=== PATIENT | female | born 1945 | race Caucasian/White ===

== ENCOUNTER 2019-05-02 10:35 | Emergency (ER) | payer MEDICARE ==
[~2019-05-02] VITALS: Ht 157.5 cm; Wt 72.6 kg
[~2019-05-02 10:35] MED LIST: GLYB2.5T4 PO; IC-5 PO; LOSA1TAB39 PO; METF500T PO; PAPA1TAB11 PO; PRAV20TA4 PO; [UNRECOGNIZED DRUG - CODE] PO; [UNRECOGNIZED DRUG - OTHER] PO
--- NOTE | 2019-05-02 11:10 | NUR ---
Pt attempted to give urine sample, but was unable to.
[2019-05-02 13:31] LABS: CLARITY,URINE SLIGHTLY CLOUDY (Clear); COLOR,URINE YELLOW (Yellow); GLUCOSE, URINE NEGATIVE (Neg); KETONES,URINE TRACE mg/dl (Neg); LEUKOCYTE ESTERASE ,URINE NEGATIVE (Neg); NITRITES, URINE NEGATIVE (Neg); OCCULT BLOOD,URINE SMALL (Neg); PROTEIN,URINE TRACE mg/dl (Neg); UROBILINOGEN,URINE 0.2 E.U/dL (0.2-1.0)
[2019-05-02 13:32] LABS: BASOPHILS % (AUTO) 0.1 % (0-1); EOSINOPHILS # (AUTO) 0.1 X10'3 (0-0.9); EOSINOPHILS % (AUTO) 0.7 % (0-6); HEMATOCRIT 37.8 % (35.0-45.0); HEMOGLOBIN 12.5 g/dl (12.0-16.0); LYMPHOCYTES # (AUTO) 2.1 X10'3 (1.1-4.8); MEAN CORPUSCULAR HEMOGLOBIN 27.5 PG (27.0-31.0); MEAN CORPUSCULAR HGB CONC 33.1 g/dL (33.0-36.5); MEAN CORPUSCULAR VOLUME 83.2 FL (78-98); MEAN PLATELET VOLUME 7.1 FL (7.4-10.4); MONOCYTES # (AUTO) 0.6 X10'3 (0-0.9); MONOCYTES % (AUTO) 5.5 % (2-12); NEUTROPHILS # (AUTO) 7.7 X10'3 (1.8-7.7); NEUTROPHILS % (AUTO) 73.7 % (42-75); PLATELET COUNT 487 X10'3 (140-440); RED BLOOD COUNT 4.54 X10'6 (4.20-5.60); RED CELL DISTRIBUTION WIDTH 14.9 % (11.5-14.5); WHITE BLOOD COUNT 10.5 X10'3 (4.5-11.0)
[2019-05-02 13:34] LABS: UA COLLECTION TYPE VOIDED
[2019-05-02 13:42] LABS: BACTERIA,URINE FEW /HPF (Neg); MUCUS STRANDS FEW /LPF (Neg); RBC,URINE 0-2 /HPF (0-2); SQUAMOUS EPITHELIAL CELL,UR MODERATE /LPF (FEW); WBC,URINE 0-4 /HPF (0-4)
[2019-05-02 13:56] LABS: ALANINE AMINOTRANSFERASE 26 U/L (12-78); ALBUMIN 3.7 G/DL (3.4-5.0); ALBUMIN/GLOBULIN RATIO 0.8 (1.1-1.5); ALKALINE PHOSPHATASE 111 IU/L (46-116); ANION GAP 16 (8-16); ASPARTATE AMINO TRANSFERASE 19 U/L (10-37); BILIRUBIN,TOTAL 0.2 MG/DL (0.1-1.0); BLOOD UREA NITROGEN 19 MG/DL (7-18); BUN/CREATININE RATIO 10.7 (6.6-38.0); CALCIUM 10.2 MG/DL (8.5-10.1); CHLORIDE 92 MMOL/L (99-107); CREATININE 1.77 MG/DL (0.40-0.90); GLUCOSE 143 MG/DL (70-104); SODIUM 126 MMOL/L (135-145); TOTAL CARBON DIOXIDE 18.1 MMOL/L (24-32); TOTAL PROTEIN 8.3 G/DL (6.4-8.2); eGFR 28 ML/MIN
[2019-05-02 14:02] LABS: POTASSIUM 2.7 MMOL/L (3.5-5.1)
--- NOTE | 2019-05-02 14:16 | NUR ---
cell [phone] jericho [phone] marissa: son
[2019-05-02] MEDS ORDERED: potassium Cl 20 mEq SR tablet PO ONE (14:25)
[2019-05-02] MEDS ORDERED: potassium 10mEq/100ml NS w/LIDOcaine (10mg/bag) IV SCH (14:25)
[2019-05-02] MEDS ORDERED: normal saline 1000ML IV soln IVB ONE (14:25)
--- NOTE | 2019-05-02 14:58 | NUR ---
pt moved to er bed 13
[2019-05-02] MEDS: potassium Cl 10 mEq/100mL bag IV SCH ×2 (15:40→16:40)
--- NOTE | 2019-05-02 17:57 | NUR ---
Pt noted to have PVR of 36 mL via bladder scan.
[2019-05-02 18:09] VITALS: BP 128/68
[2019-05-03] MEDS ORDERED: AMLO5TAB16 PO (21:36)
[2019-05-03] MEDS ORDERED: CARV6.253 PO (21:36)
[2019-05-03] MEDS ORDERED: ALPR-160 PO (21:36)
[2019-05-03] MEDS ORDERED: GLIP-20 PO (21:36)
[2019-05-03] MEDS ORDERED: PARO10TA4 PO (21:36)
[2019-05-03] MEDS ORDERED: FURO20TA4 PO (21:36)
[2019-05-03] MEDS ORDERED: METF-438 PO (21:36)
== END 2019-05-02 18:10 | disposition home or self-care (01) ==
LOC: ER 10:36
DX: N17.9 Acute kidney failure, unspecified (principal); E87.6 Hypokalemia; R19.7 Diarrhea, unspecified; Z88.1 Allergy status to other antibiotic agents; Z79.84 Long term (current) use of oral hypoglycemic drugs; Z79.899 Other long term (current) drug therapy
CPT/HCPCS: 36415; 80053; 81001; 85025; 96365; 96366; 99284; J3480; J7030

== ENCOUNTER 2024-10-24 06:18 | Inpatient (IN) | payer MEDICARE ==
[2024-10-24] VITALS (13 sets, daily range): BP systolic 118–166; BP diastolic 41–74; PULSE 77–98; RESP 14–29; TEMP 97.5–98.4; O2SAT 93–100
[~2024-10-24] VITALS: Ht 154.9 cm; Wt 59.9 kg
[~2024-10-24 06:18] MED LIST changes: +ALPR0.255 PO; +AMLO5TAB16 PO; +CARV6.253 PO; +FURO20TA4 PO; +GLIP-20 PO; -GLYB2.5T4 PO; -IC-5 PO; -LOSA1TAB39 PO; +METF-438 PO; -METF500T PO; -PAPA1TAB11 PO; +PARO10TA4 PO; +POTA-206 PO; -PRAV20TA4 PO; -[UNRECOGNIZED DRUG - CODE] PO; -[UNRECOGNIZED DRUG - OTHER] PO
[2024-10-24 06:46] LABS: BILIRUBIN,URINE NEGATIVE (Neg); CLARITY,URINE CLEAR (Clear); COLOR,URINE YELLOW (Yellow); GLUCOSE, URINE NEGATIVE (Neg); KETONES,URINE 15 mg/dl (Neg); LEUKOCYTE ESTERASE ,URINE NEGATIVE (Neg); NITRITES, URINE NEGATIVE (Neg); OCCULT BLOOD,URINE TRACE-INTACT (Neg); PH,URINE 6.5 (4.8-8.0); PROTEIN,URINE NEGATIVE (Neg); UROBILINOGEN,URINE 0.2 E.U/dL (0.2-1.0)
[2024-10-24 06:48] LABS: UA COLLECTION TYPE CLN CATCH MIDSTREAM
[2024-10-24 06:54] LABS: BACTERIA,URINE NONE SEEN /HPF (Neg); MUCUS STRANDS NONE SEEN /LPF (Neg); RBC,URINE 0-2 /HPF (0-2); SQUAMOUS EPITHELIAL CELL,UR FEW /LPF (FEW); WBC,URINE NONE SEEN /HPF (0-4)
[2024-10-24] MEDS: morphine 4 MG/ML inj SYRINge IV ONE ×2 (07:43→11:15)
[2024-10-24] MEDS: ondansetron/PF 4mg/2ml inj IV ONE (07:43)
[2024-10-24 07:57] LABS: BASOPHILS # (AUTO) 0.1 X10'3 (0-0.2); BASOPHILS % (AUTO) 0.9 % (0-1); EOSINOPHILS % (AUTO) 0.2 % (0-6); HEMATOCRIT 38.7 % (35.0-45.0); LYMPHOCYTES # (AUTO) 3.4 X10'3 (1.1-4.8); LYMPHOCYTES % (AUTO) 21.5 % (21-51); MEAN CORPUSCULAR HEMOGLOBIN 28.7 PG (27.0-31.0); MEAN CORPUSCULAR HGB CONC 33.6 g/dL (33.0-36.5); MEAN CORPUSCULAR VOLUME 85.6 FL (78-98); MONOCYTES # (AUTO) 0.9 X10'3 (0-0.9); MONOCYTES % (AUTO) 5.9 % (2-12); NEUTROPHILS # (AUTO) 11.4 X10'3 (1.8-7.7); NEUTROPHILS % (AUTO) 71.5 % (42-75); PLATELET COUNT 450 X10'3 (140-440); RED BLOOD COUNT 4.52 X10'6 (4.20-5.60); RED CELL DISTRIBUTION WIDTH 15.1 % (11.5-14.5); WHITE BLOOD COUNT 15.9 X10'3 (4.5-11.0)
[2024-10-24 08:12] LABS: ALANINE AMINOTRANSFERASE 70 U/L (12-78); ALBUMIN 3.7 G/DL (3.4-5.0); ALBUMIN/GLOBULIN RATIO 0.9 (1.1-1.5); ALKALINE PHOSPHATASE 193 IU/L (46-116); ANION GAP 11 (8-16); ASPARTATE AMINO TRANSFERASE 25 U/L (10-37); BILIRUBIN,TOTAL 0.7 MG/DL (0.1-1.0); BLOOD UREA NITROGEN 14 MG/DL (7-18); BUN/CREATININE RATIO 14.9 (10.0-20.0); CALCIUM 10.2 MG/DL (8.5-10.1); CHLORIDE 93 MMOL/L (99-107); CREATININE 0.94 MG/DL (0.40-0.90); GLUCOSE 183 MG/DL (70-104); LIPASE 44 U/L (16-77); POTASSIUM 3.8 MMOL/L (3.5-5.1); SODIUM 130 MMOL/L (135-145); TOTAL PROTEIN 7.7 G/DL (6.4-8.2); eCRCL 35 ML/MIN; eGFR 57 ML/MIN
[2024-10-24] MEDS: piperacillin/tazo 3.375gm/50ml 50 ML IV STA (10:46)
[2024-10-24] MEDS ORDERED: GLIP5TAB23 PO (10:55)
[2024-10-24] MEDS ORDERED: LOSA1TAB39 PO (10:55)
[2024-10-24] MEDS: normal saline 1000ml 1,000 ML IV SCH ×2 (13:01→18:25)
[2024-10-24] MEDS: morphine 2 MG/ML inj. syringe IV PRN (14:58)
[2024-10-24] MEDS: INDOCYANINE GREEN 25 MG/10 ML VIAL IV ONE (16:46)
[2024-10-24] MEDS ORDERED: LIDOcaine 1% 30ml preserv. free vial ONE (17:33)
[2024-10-24] MEDS ORDERED: BUPIVAcaine 2.5mg/ml inj 50ml vial (contains preservative) ONE (17:33)
[2024-10-24] MEDS ORDERED: hydrALAZINE 20mg/ml inj. IV PRN (17:55)
[2024-10-24] MEDS ORDERED: morphine 2 MG/ML inj. syringe IV PRN ×2 (17:55→18:25)
[2024-10-24] MEDS ORDERED: morphine 4 MG/ML inj SYRINge IV PRN (17:55)
[2024-10-24] MEDS ORDERED: labetalol 20mg/4ml (5mg/ml) syringe IV PRN (17:55)
[2024-10-24] MEDS ORDERED: ringers solution, lacted 1,000 ML IV SCH (17:55)
[2024-10-24] MEDS ORDERED: ondansetron/PF 4mg/2ml inj IV PRN (17:55)
[2024-10-24] MEDS ORDERED: fentaNYL/PF 50MCG/1 ML 2ML syringe IV PRN ×2 (17:55)
[2024-10-24] MEDS ORDERED: sugammadex 200mg/2ml injection IV ONE (17:56)
[2024-10-24] MEDS ORDERED: ondansetron/PF 4mg/2ml inj ONE (17:59)
[2024-10-24] MEDS ORDERED: LIDOcaine 2% (20mg/ml) 5ml vial ONE (17:59)
[2024-10-24] MEDS ORDERED: rocuronium 10mg/ml inj IV ONE (17:59)
[2024-10-24] MEDS ORDERED: dexamethasone sod phosphate 4mg/ml inj. ONE (17:59)
[2024-10-24] MEDS ORDERED: midazolam 1 mg/ML 2ml injection ONE (17:59)
[2024-10-24] MEDS ORDERED: acetaminophen 1,000mg/100ml IV 0 ML IV ONE (17:59)
[2024-10-24] MEDS ORDERED: propofol inj 20 ML IV ONE (17:59)
[2024-10-24] MEDS ORDERED: sevoflurane 250ml liquid IH ONE (18:00)
[2024-10-24] MEDS ORDERED: acetaminophen 1,000mg/100ml IV 100 ML IV ONE (18:10)
[2024-10-24] MEDS ORDERED: ceFAZolin 1000mg inj ONE ×2 (18:15)
[2024-10-24] MEDS ORDERED: magnesium sulf-water 2g/50mL 50 ML IV PRN (18:25)
[2024-10-24] MEDS ORDERED: magnesium sulf-water 4G/100mL 100 ML IV PRN (18:25)
[2024-10-24] MEDS ORDERED: potassium Cl 20 mEq SR tablet PO PRN (18:25)
[2024-10-24] MEDS ORDERED: mag hydrox/Alum hydrox/simeth 30ml oral suspension PO PRN (18:25)
[2024-10-24] MEDS ORDERED: acetaminophen 325mg tablet PO PRN (18:25)
[2024-10-24] MEDS ORDERED: potassium Cl 40MEQ/1/2NS 520ml 520 ML IV PRN (18:25)
[2024-10-24] MEDS ORDERED: magnesium hydroxide 30ml (MOM) UD suspension PO PRN (18:25)
[2024-10-24] MEDS: PERFLUTREN PROTEIN-A MICROSPHR (Optison) 0.22 MG/ML 3ML VIAL IV ONE (19:25)
[2024-10-24] MEDS ORDERED: DEXTROSE 15 GM of carb/4 tabs (each vial/BOTTLE has 4 tablets) PO PRN ×2 (19:25)
[2024-10-24] MEDS ORDERED: dextrose 50%-water 50ml dispensing syringe IV PRN ×2 (19:25)
[2024-10-24] MEDS ORDERED: glucagon, human recombinant 1mg kit SUBCUT PRN (19:25)
[2024-10-24] MEDS ORDERED: naloxone 0.4 mg/ml inj IV PRN (19:55)
[2024-10-24] MEDS: BUPIVAcaine 2.5mg/ml inj 50ml vial (contains preservative) IJ ONE (19:58)
[2024-10-24] MEDS: K and/or MAG REPLACEMENT MC SCH (20:00)
[2024-10-24] MEDS: INSULIN LISPRO 100 UNIT/ML INSULN.PEN MULTI-DOSE SQ SCH (21:00)
[2024-10-24] MEDS: carvedilol 6.25mg tablet PO SCH (21:06)
[2024-10-24] MEDS: heparin, porcine 5000 units/ml vial SQ SCH (21:06)
[2024-10-24] MEDS: docusate sod 100mg capsule PO SCH (21:06)
[2024-10-25] VITALS (8 sets, daily range): BP systolic 93–122; BP diastolic 37–54; PULSE 63–86; RESP 13–18; TEMP 97.6–98.1; O2SAT 91–97
[2024-10-25] MEDS: HYDROcodone/acetaminophen 5mg/325mg tablet PO PRN (05:23)
[2024-10-25 06:23] LABS: BASOPHILS % (AUTO) 0 % (0-1); EOSINOPHILS % (AUTO) 0 % (0-6); HEMATOCRIT 36.2 % (35.0-45.0); HEMOGLOBIN 11.9 g/dl (12.0-16.0); LYMPHOCYTES # (AUTO) 1.6 X10'3 (1.1-4.8); LYMPHOCYTES % (AUTO) 7.8 % (21-51); MEAN CORPUSCULAR HEMOGLOBIN 28.3 PG (27.0-31.0); MEAN CORPUSCULAR HGB CONC 32.9 g/dL (33.0-36.5); MEAN CORPUSCULAR VOLUME 86.1 FL (78-98); MEAN PLATELET VOLUME 7.8 FL (7.4-10.4); MONOCYTES # (AUTO) 0.8 X10'3 (0-0.9); MONOCYTES % (AUTO) 3.6 % (2-12); NEUTROPHILS # (AUTO) 18.4 X10'3 (1.8-7.7); NEUTROPHILS % (AUTO) 88.6 % (42-75); PLATELET COUNT 399 X10'3 (140-440); RED BLOOD COUNT 4.21 X10'6 (4.20-5.60); RED CELL DISTRIBUTION WIDTH 14.9 % (11.5-14.5); WHITE BLOOD COUNT 20.8 X10'3 (4.5-11.0)
[2024-10-25 07:04] LABS: ALANINE AMINOTRANSFERASE 66 U/L (12-78); ALBUMIN/GLOBULIN RATIO 0.8 (1.1-1.5); ALKALINE PHOSPHATASE 156 IU/L (46-116); ANION GAP 11 (8-16); ASPARTATE AMINO TRANSFERASE 54 U/L (10-37); BILIRUBIN,TOTAL 0.7 MG/DL (0.1-1.0); BLOOD UREA NITROGEN 13 MG/DL (7-18); BUN/CREATININE RATIO 12.7 (10.0-20.0); CALCIUM 8.5 MG/DL (8.5-10.1); CHLORIDE 99 MMOL/L (99-107); CREATININE 1.02 MG/DL (0.40-0.90); GLUCOSE 220 MG/DL (70-104); MAGNESIUM 1.4 MG/DL (1.5-2.4); SODIUM 134 MMOL/L (135-145); TOTAL CARBON DIOXIDE 23.9 MMOL/L (24-32); TOTAL PROTEIN 6.8 G/DL (6.4-8.2); eCRCL 33 ML/MIN; eGFR 52 ML/MIN
[2024-10-25 09:09] LABS: HEMOGLOBIN A1C 6.9 % (4.5-6.2)
[2024-10-25] MEDS: losartan 50mg tablet PO SCH (09:10)
[2024-10-25] MEDS: HYDROchlorothiazide 25mg tablet PO SCH (09:10)
[2024-10-25] MEDS: magnesium Cl slow-release 64mg tablet PO PRN (09:12)
[2024-10-25] MEDS: piperacillin/tazo 3.375gm/50ml 50 ML IV SCH (16:38)
[2024-10-26] VITALS (7 sets, daily range): BP systolic 96–124; BP diastolic 42–58; PULSE 60–72; RESP 15–20; TEMP 97.3–99; O2SAT 92–96
[2024-10-26 06:21] LABS: BASOPHILS % (AUTO) 0.1 % (0-1); EOSINOPHILS % (AUTO) 0.1 % (0-6); HEMATOCRIT 32.3 % (35.0-45.0); HEMOGLOBIN 10.6 g/dl (12.0-16.0); LYMPHOCYTES # (AUTO) 3.6 X10'3 (1.1-4.8); LYMPHOCYTES % (AUTO) 18.6 % (21-51); MEAN CORPUSCULAR HEMOGLOBIN 28.6 PG (27.0-31.0); MEAN CORPUSCULAR VOLUME 86.7 FL (78-98); MEAN PLATELET VOLUME 7.9 FL (7.4-10.4); MONOCYTES # (AUTO) 1.2 X10'3 (0-0.9); MONOCYTES % (AUTO) 6.3 % (2-12); NEUTROPHILS # (AUTO) 14.6 X10'3 (1.8-7.7); NEUTROPHILS % (AUTO) 74.9 % (42-75); PLATELET COUNT 338 X10'3 (140-440); RED BLOOD COUNT 3.72 X10'6 (4.20-5.60); RED CELL DISTRIBUTION WIDTH 14.9 % (11.5-14.5); WHITE BLOOD COUNT 19.5 X10'3 (4.5-11.0)
[2024-10-26 06:39] LABS: ALANINE AMINOTRANSFERASE 57 U/L (12-78); ALBUMIN 2.7 G/DL (3.4-5.0); ALBUMIN/GLOBULIN RATIO 0.7 (1.1-1.5); ALKALINE PHOSPHATASE 161 IU/L (46-116); ANION GAP 10 (8-16); ASPARTATE AMINO TRANSFERASE 43 U/L (10-37); BILIRUBIN,TOTAL 0.7 MG/DL (0.1-1.0); BLOOD UREA NITROGEN 17 MG/DL (7-18); CALCIUM 8.5 MG/DL (8.5-10.1); CHLORIDE 101 MMOL/L (99-107); CREATININE 1.13 MG/DL (0.40-0.90); GLUCOSE 147 MG/DL (70-104); MAGNESIUM 1.6 MG/DL (1.5-2.4); POTASSIUM 3.2 MMOL/L (3.5-5.1); SODIUM 137 MMOL/L (135-145); TOTAL PROTEIN 6.4 G/DL (6.4-8.2); eCRCL 29 ML/MIN; eGFR 46 ML/MIN
[2024-10-26] MEDS: normal saline 1000ml 1,000 ML IV SCH (07:35)
[2024-10-26] MEDS: potassium Cl 20 mEq SR tablet PO PRN (08:04)
[2024-10-26] MEDS: ondansetron/PF 4mg/2ml inj IV PRN (10:26)
[2024-10-27 05:55] LABS: BASOPHILS % (AUTO) 0.2 % (0-1); EOSINOPHILS % (AUTO) 0.3 % (0-6); HEMATOCRIT 29.8 % (35.0-45.0); HEMOGLOBIN 9.9 g/dl (12.0-16.0); LYMPHOCYTES # (AUTO) 2.6 X10'3 (1.1-4.8); LYMPHOCYTES % (AUTO) 18.1 % (21-51); MEAN CORPUSCULAR HEMOGLOBIN 28.9 PG (27.0-31.0); MEAN CORPUSCULAR HGB CONC 33.2 g/dL (33.0-36.5); MEAN CORPUSCULAR VOLUME 86.9 FL (78-98); MONOCYTES % (AUTO) 6.7 % (2-12); NEUTROPHILS # (AUTO) 10.9 X10'3 (1.8-7.7); NEUTROPHILS % (AUTO) 74.7 % (42-75); PLATELET COUNT 308 X10'3 (140-440); RED BLOOD COUNT 3.43 X10'6 (4.20-5.60); RED CELL DISTRIBUTION WIDTH 14.9 % (11.5-14.5); WHITE BLOOD COUNT 14.6 X10'3 (4.5-11.0)
[2024-10-27 06:00] VITALS: BP 129/49; PULSE 77; RESP 18; TEMP 97.8; O2SAT 96
[2024-10-27 06:12] LABS: ALBUMIN 2.3 G/DL (3.4-5.0); ANION GAP 7 (8-16); BLOOD UREA NITROGEN 12 MG/DL (7-18); CALCIUM 8.6 MG/DL (8.5-10.1); CHLORIDE 104 MMOL/L (99-107); CREATININE 0.86 MG/DL (0.40-0.90); GLUCOSE 141 MG/DL (70-104); MAGNESIUM 1.6 MG/DL (1.5-2.4); POTASSIUM 4.2 MMOL/L (3.5-5.1); SODIUM 136 MMOL/L (135-145); TOTAL CARBON DIOXIDE 25.4 MMOL/L (24-32); eCRCL 39 ML/MIN; eGFR 63 ML/MIN
[2024-10-27 08:00] VITALS: RESP 16
[2024-10-27] MEDS ORDERED: HYDR-3965 PO (08:31)
[2024-10-27 10:00] VITALS: BP 120/60; PULSE 75; RESP 18; TEMP 97.5; O2SAT 98
[2024-10-27 17:44] VITALS: RESP 16
== END 2024-10-27 17:19 | disposition home or self-care (01) | DRG 417 ==
LOC: ER 06:18 → ED HOLD 11:18 → PACU 15:15 → ORTHO 4S 20:38 → SUR 3N 10-26 19:39
PROVIDERS: ADMIT Family Medicine; ATTEND Family Medicine
PROC: 0DNW4ZZ Release Peritoneum, Percutaneous Endoscopic Approach (ICD-10-PCS; 2024-10-24)
PROC: BF532Z0 Other Imaging of Gallbladder and Bile Ducts using Fluorescing Agent, Intraoperative (ICD-10-PCS; 2024-10-24)
PROC: 8E0W4CZ Robotic Assisted Procedure of Trunk Region, Percutaneous Endoscopic Approach (ICD-10-PCS; 2024-10-24)
PROC: 0FT44ZZ Resection of Gallbladder, Percutaneous Endoscopic Approach (ICD-10-PCS; principal; 2024-10-24 18:00)
DX: K80.00 Calculus of gallbladder with acute cholecystitis without obstruction (principal); N17.0 Acute kidney failure with tubular necrosis; E87.1 Hypo-osmolality and hyponatremia; K66.0 Peritoneal adhesions (postprocedural) (postinfection); E11.22 Type 2 diabetes mellitus with diabetic chronic kidney disease; I12.9 Hypertensive chronic kidney disease with stage 1 through stage 4 chronic kidney disease, or unspecified chronic kidney disease; I25.10 Atherosclerotic heart disease of native coronary artery without angina pectoris; K43.9 Ventral hernia without obstruction or gangrene; N18.9 Chronic kidney disease, unspecified; Z88.1 Allergy status to other antibiotic agents; Z88.8 Allergy status to other drugs, medicaments and biological substances
CPT/HCPCS: 36415; 76700; 80048; 80053; 81001; 82948; 83036; 83690; 83735; 85025; 88304; 97161; 97530; 99285; A4215; A4615; A4618; A7000; G0378; J0131; J0690; J1100; J1644; J1815; J2003; J2250; J2270; J2371; J2405; J2543; J2704; J3490; J7030; J7120